=== PATIENT | female | born 1975 | race Caucasian/White ===

== ENCOUNTER 2018-06-11 21:58 | Inpatient (IN) | payer OTHER ==
[~2018-06-11] VITALS: Ht 160 cm; Wt 73.5 kg
[2018-06-11 22:20] LABS: BASOPHILS % (AUTO) 0.4 % (0.0-2.0); EOSINOPHILS % (AUTO) 1.2 % (1.0-6.0); HEMATOCRIT 40.7 % (36-46); HEMOGLOBIN 13.9 g/dL (12.0-16.0); LYMPHOCYTES # (AUTO) 3.4 K/uL (1.0-4.8); LYMPHOCYTES % (AUTO) 48.1 % (22.0-44.0); MEAN CORPUSCULAR HEMOGLOBIN 34.3 pg (26.0-34.0); MEAN CORPUSCULAR HGB CONC 34.3 G/dL (31.0-37.0); MEAN CORPUSCULAR VOLUME 100 fL (80-100); MONOCYTES # (AUTO) 0.4 K/uL (0.1-1.0); MONOCYTES % (AUTO) 6.2 % (2.0-9.0); NEUTROPHILS # (AUTO) 3.1 K/uL (1.8-7.7); NEUTROPHILS % (AUTO) 44.1 % (40.0-70.0); PLATELET COUNT (AUTO) 241 K/uL (150-450); RED BLOOD CELL COUNT(AUTO) 4.06 MIL/uL (4.00-5.20); RED CELL DISTRIBUTION WIDTH 12.5 % (11.5-14.5)
[2018-06-11 22:27] LABS: ANION GAP 10 mmol/L (8-16); CARBON DIOXIDE 26 mmol/L (22-29); CHLORIDE 104 mmol/L (98-107); CREATININE 0.71 mg/dL (0.60-1.30); GLOMERULAR FILTR. RATE CALC > 60 mL/min (>60); GLUCOSE,RANDOM 114 mg/dL (70-110); POTASSIUM 3.8 mmol/L (3.5-5.1); SODIUM SERUM 140 mmol/L (136-145); UREA NITROGEN, BLOOD 8 mg/dL (7-18)
[2018-06-11] MEDS ORDERED: PERTUSS(ACELL),DIPH,TET VAC/PF 0.5 ML VIAL IM ONE (22:30)
[2018-06-11] MEDS ORDERED: SODIUM CHLORIDE 0.9% 250 ML IRRIG SOLUTION BOTTLE IRRIG ONE (22:30)
[2018-06-11 22:37] LABS: ALANINE AMINOTRANSFERASE 12 U/L (12-78); ALBUMIN 3.4 g/dL (3.4-5.0); ALKALINE PHOSPHATASE 59 U/L (46-116); ASPARTATE AMINOTRANSFERASE 11 U/L (15-37); BILIRUBIN,TOTAL 0.2 mg/dL (0.1-1.0); HCG,QUANTITATIVE < 1 mIU/mL (0-6); TOTAL PROTEIN, SERUM 7.4 g/dL (6.4-8.2)
[2018-06-11] MEDS ORDERED: METF-805 PO (22:52)
[2018-06-11] MEDS ORDERED: [UNRECOGNIZED DRUG - CODE] MC (22:53)
[2018-06-11] MEDS ORDERED: HALOPERIDOL 5 MG TABLET PO PRN (23:15)
[2018-06-11] MEDS ORDERED: LORazepam 2 MG TABLET PO PRN (23:15)
[2018-06-11] MEDS ORDERED: ZOLPIDEM TARTRATE 10 MG TABLET PO PRN (23:15)
[2018-06-12 00:11] VITALS: BP 137/92
[2018-06-12 00:16] VITALS: BP 137/92
[2018-06-12 04:06] LABS: APPEARANCE,URINE CLEAR (CLEAR); BILIRUBIN,URINE NEGATIVE (NEGATIVE); GLUCOSE, URINE (UA) NEGATIVE (NEGATIVE); KETONES,URINE NEGATIVE (NEGATIVE); LEUKOCYTE ESTERASE ,URINE NEGATIVE (NEGATIVE); NITRATE,URINE NEGATIVE (NEGATIVE); OCCULT BLOOD,URINE NEGATIVE (NEGATIVE); PH,URINE 7.5 (5.0-8.0); PROTEIN,URINE NEGATIVE (NEGATIVE); UROBILINOGEN,URINE 0.2 mg/dL (<=1.0)
[2018-06-12 04:13] LABS: AMPHET/METH SCREEN,URINE NEGATIVE (NEGATIVE); BARBITURATE SCREEN, URINE NEGATIVE (NEGATIVE); BENZODIAZEPINES SCREEN,URINE NEGATIVE (NEGATIVE); CANNABINOID SCREEN,URINE NEGATIVE (NEGATIVE); COCAINE SCREEN,URINE NEGATIVE (NEGATIVE); METHADONE SCREEN, URINE NEGATIVE (NEGATIVE); OPIATE SCREEN,URINE NEGATIVE (NEGATIVE); PHENCYCLIDINE SCREEN,URINE NEGATIVE (NEGATIVE)
[2018-06-12 06:44] LABS: CHOL/HDL RATIO 2.3 (3.9-5.7)
[2018-06-12] MEDS ORDERED: MAGNESIUM HYDROXIDE SUSPENSION 30 ML UDCUP PO PRN (08:15)
[2018-06-12] MEDS ORDERED: PETROLATUM,WHITE 71 GM JELLY TP PRN (08:15)
[2018-06-12] MEDS ORDERED: MAG HYDROX/AL HYDROX/SIMETH ES 30 ML SUSPENSION UDCUP PO PRN (08:15)
[2018-06-12] MEDS ORDERED: BENZOCAINE/MENTHOL LOZENGE MM PRN (08:15)
[2018-06-12] MEDS ORDERED: ACETAMINOPHEN 325 MG TABLET PO PRN (08:15)
[2018-06-12] MEDS ORDERED: ONDANSETRON HCL 4 MG TABLET PO PRN (08:15)
[2018-06-12] MEDS ORDERED: CloNIDine HCL 0.1 MG TABLET PO PRN (08:15)
[2018-06-12] MEDS ORDERED: LOPERAMIDE HCL 2 MG CAPSULE PO PRN (08:15)
[2018-06-12] MEDS ORDERED: ALBUTEROL SULFATE HFA 90 MCG/PUFF 8 GM INHALER IH PRN (08:15)
[2018-06-12] MEDS ORDERED: BACITRACIN 28.4 GM OINTMENT TP PRN (08:15)
[2018-06-12] MEDS ORDERED: IBUPROFEN 600 MG TABLET PO PRN (08:15)
[2018-06-12] MEDS: OMEPRAZOLE 20 MG CAPSULE PO SCH (08:46)
[2018-06-12] MEDS: DOCUSATE SODIUM 100 MG CAPSULE PO SCH (08:46)
[2018-06-12 11:07] VITALS: BP 128/96
[2018-06-12] MEDS ORDERED: [UNRECOGNIZED DRUG - CODE] PO (17:39)
[2018-06-12 21:48] VITALS: BP 132/93
[2018-06-13] MEDS: MULTIVITAMINS WITH MINERALS, THERAPEUTIC TABLET PO SCH (08:39)
[2018-06-13] MEDS: OMEPRAZOLE 20 MG CAPSULE PO SCH (08:39)
[2018-06-13] MEDS: DOCUSATE SODIUM 100 MG CAPSULE PO SCH (08:39)
[2018-06-13] MEDS: BACITRACIN 28.4 GM OINTMENT TP SCH (08:40)
[2018-06-13 09:39] VITALS: BP 112/73
[2018-06-13] MEDS: ESCITALOPRAM OXALATE 10 MG TABLET PO SCH (13:01)
[2018-06-13 16:32] VITALS: BP 137/87
[2018-06-14] MEDS: ESCITALOPRAM OXALATE 10 MG TABLET PO SCH (08:19)
[2018-06-14] MEDS: OMEPRAZOLE 20 MG CAPSULE PO SCH (08:19)
[2018-06-14] MEDS: MULTIVITAMINS WITH MINERALS, THERAPEUTIC TABLET PO SCH (08:19)
[2018-06-14] MEDS: DOCUSATE SODIUM 100 MG CAPSULE PO SCH (08:19)
[2018-06-14 09:57] VITALS: BP 107/76
[2018-06-14] MEDS: BACITRACIN 28.4 GM OINTMENT TP SCH (10:00)
[2018-06-14] MEDS ORDERED: ESCI10TA54 PO (10:22)
[2018-06-14] MEDS ORDERED: OMEP20 PO (10:48)
[2018-06-14] MEDS ORDERED: BACI3.5O22 TP (10:48)
[2018-06-14] MEDS ORDERED: DSS100 PO (10:48)
[2018-06-14] MEDS ORDERED: MULT-1239 PO (10:48)
== END 2018-06-14 13:05 | disposition home or self-care (01) | DRG 885 ==
LOC: EMS 21:59 → 3EX 23:30
PROC: 0HQHXZZ Repair Right Upper Leg Skin, External Approach (ICD-10-PCS; principal; 2018-06-11)
DX: F33.2 Major depressive disorder, recurrent severe without psychotic features (principal); E28.2 Polycystic ovarian syndrome; F41.9 Anxiety disorder, unspecified; G47.00 Insomnia, unspecified; K59.00 Constipation, unspecified; S81.831A Puncture wound without foreign body, right lower leg, initial encounter; X78.1XXA Intentional self-harm by knife, initial encounter; S51.812A Laceration without foreign body of left forearm, initial encounter; S71.111A Laceration without foreign body, right thigh, initial encounter; Y93.89 Activity, other specified; Z79.899 Other long term (current) drug therapy; Z91.5 Personal history of self-harm; Y92.89 Other specified places as the place of occurrence of the external cause; Y99.8 Other external cause status
CPT/HCPCS: 12001; 90471; 90715; G0378; G0480